=== PATIENT | male | born 1950 | race Caucasian/White ===

== ENCOUNTER 2018-10-29 06:42 | Inpatient (IN) | payer MEDICARE, OTHER, SELFPAY ==
[2018-10-15 11:00] VITALS: BP 118/69; PULSE 92; RESP 17; TEMP 37.3; O2SAT 97; BMI 28.4
[2018-10-15 12:23] LABS: Basophil# 0.04 X10^3/uL; Basophil% 0.6 % (0-1); Eosinophil# 0.16 X10^3/uL; Eosinophils% 2.5 % (0-5); Hematocrit 44.6 % (40-54); Hemoglobin 14.5 g/dl (13.0-16.5); Lymphocyte % 26.3 % (19-41); Mean Corp Hgb Conc 32.5 g/gl (32-36); Mean Corpuscular Hgb 28.5 pg (27.0-32.0); Mean Corpuscular Volume 87.8 fL (80-94); Mean Platelet Vol. 9.6 fl (6.2-12.0); Monocyte# 0.59 X10^3/uL; Monocyte% 9.1 % (0-10); Neutrophil # 3.96 X10^3/uL (2.7-7.7); Neutrophil % 61.3 % (47-70); Platelet Count 175 K/mm3 (150-450); RBC Distribution Width CV 14.3 % (11.6-14.6); RBC Distribution Width SD 45.9 fl (35.1-43.9); Red Blood Count 5.08 M/mm3 (4.6-6.2); White Blood Count 6.5 K/mm3 (4.4-11.0)
[2018-10-15 12:28] LABS: POSITIVE COUNT NO; POSITIVE DIFFERENTIAL NO; POSITIVE MORPHOLOGY NO
[2018-10-15 13:01] LABS: Anion Gap 7 (5-15); BUN 15 mg/dL (7-18); BUN/Creat Ratio 12.3 RATIO (10-20); Calcium,Total 8.4 mg/dL (8.5-10.1); Chloride 105 mmol/L (98-107); Creatinine, Serum 1.22 mg/dL (0.70-1.30); EST Glomerular Filtration Rate 62 mL/min (>60); Est Glom Filt Rate - Afr Amer 76 mL/min (>60); Estimated Creatinine Clearance 60.01 ml/min; Glucose 104 mg/dL (74-106); Potassium 3.5 mmol/L (3.5-5.1); Sodium Level 139 mmol/L (136-145)
--- NOTE | 2018-10-15 20:25 | PCM.HP.BLA ---
History and Physical DATE OF SURGERY: 10/29/2018 SCHEDULED PROCEDURE: left total hip arthroplasty HISTORY OF PRESENT ILLNESS: This is a 68-year-old male who has been having ongoing pain in his left hip for several years. Pain is progressively been getting worse. Patient states he has increased pain going up and down stairs and walking any amount of distance. Lying down is helpful. Patient does have start up pain. Pain is located in his left groin. Patient has difficult time with activities of daily living including bathing/showering, getting dressed, doing housework, and shopping. Patient feels unsafe walking on uneven ground due to the pain. Patient has tried conservative measures consisting of rest, ice, heat, elevation with minimal improvement. He has been through formal physical therapy with no relief. Patient has also tried oral medications consisting of ibuprofen without significant relief. Patient has required the use of a cane due to his pain. Patient currently denies any chest pain, shortness of breath, fevers chills, recent infections. She did undergo a recent heart valve replacement on July 21, 2018. Patient underwent mitral valve replacement. Patient has obtain surgical clearance from his labor relations consultant. Patient was instructed by the labor relations consultant to stop the aspirin 7 days prior to surgery. We are also obtaining surgical clearance or patient's primary care physician. Patient also has history of hypertension and previous atrial fibrillation. Patient also has a history of a previous benign cervical tumor that was removed many years ago. After failing conservative measures and discussing all treatment options by Dr. Josue Aquino, the patient does wish to proceed with a left total hip arthroplasty. REVIEW OF SYSTEMS: ROS: Const: Denies anorexia, change in appetite, fever, difficulty sleeping and weight change. CV: Reports heart murmur, but denies chest pain, irregular heartbeat and peripheral vascular disease. Resp: Denies asthma, cough, pneumonia, sleep apnea, shortness of breath, tuberculosis and wheezing. GI: Denies constipation, diarrhea, heartburn, nausea, rectal itching, bloody stools and vomiting. : Denies incontinence. Musculo: Reports pain, trouble walking and weakness, but denies leg swelling. Skin: Denies Raynaud's, history of shingles and tattoo. Neuro: Reports numbness/tingling but denies ambulatory dysfunction, dizziness and tremor. Psych: Denies anxiety, depression, insomnia, mental illness and stress. Jack/Lymph: Denies anemia, bleeding/bruising tendency and past transfusion. Reviewed and updated. PAST MEDICAL HISTORY: Advance Care Plan: Other Directive, POA Effective Date: 10/31/2017 Other Directive, LIVING WILL Effective Date: 10/31/2017 PMH: Medical Problems: Arthritis, Cancer Accidents: Sports Related Injury - KNEE INJURIES Surgical Hx: Tonsillectomy - [facility] Cyst Blanched, Cervial Tumor Removed Heart Valve Replacement - (07/2018) Anesthesia Complications: None Assistive Devices: Glasses, Cane Reviewed and updated. SOCIAL HISTORY: SH: Marital: Single.Occupation: [employer].Work Status: Currently Working.Hand Dominance: Left-handed. Personal Habits: Cigarette Use: Chewing Tobacco.Alcohol: Occasionally.Drug Use: Denies Use.Enjoy Exercising: Never Exercises. Reviewed and updated. VITALS: Ht: 71.5 Wt: 206lb Wt k.442 BMI: 28.3 BP: 123/86 Pulse: 103 Resp: 20 T: 97.5 T: 36.4C ALLERGIES: No Known Drug Allergy MEDICATIONS: Latanoprost 0.005 % 1 drop in each eye daily, Dorzolamide HCL 2 % one drop in each eye bid, Aspirin 325 mg 1 tab PO daily PRE-OP EXAM: General appearance:NORMAL Other: Eyes: Conjunctivae and lids: NORMAL Pupils: ERR Ears, Nose, Mouth, and Throat: NORMAL Other: Inspection of lips, teeth and gums: NORMAL Other: Neck: Examination of neck: no masses noted. Respiratory: Assessment of respiratory effort: NORMAL Other: Auscultation of lungs: clear to auscultation no wheezes, rhonchi or rales. Cardiovascular: Auscultation of heart: regular rate and rhythm, positive systolic murmur. Gastrointestinal: Exam of abdomen: soft, nontender, nondistended bowel sounds present. PHYSICAL EXAMINATION: Patient walks with an antalgic gait. Currently has left groin pain associated with range of motion and walking. Left hip range of motion: Flexion 90, internal rotation neutral, external rotation 10. Patient has 3 cm leg length discrepancy on the left. Sensation intact to light touch. Neurovascularly intact. IMAGING STUDIES: X-rays of the left hip reveal joint space narrowing with subchondral sclerosis and osteophyte formation consistent with severe osteoarthritis. There is evidence of subchondral collapse and femoral head flattening. Patient has appreciable leg length discrepancy. IMPRESSION: 1. Severe left hip osteoarthritis 2. Hypertension 3. History of mitral valve replacement: July 2018 4. History of atrial fibrillation PLAN: Dr. Josue Aquino did discuss and review with the patient all treatment options including surgical versus nonsurgical options. Patient does wish to proceed with the above-stated procedure. Potential risks, benefits, and complications of the procedure were discussed in detail including but not limited to , infection, nerve and blood vessel damage, persistent pain, numbness, tingling, paresthesias, blood clot, pulmonary embolism, and requirement for possible further surgery. The patient expressed full understanding and has no further questions for the doctor. Patient does agree to proceed with the above-stated procedure and has signed the surgery consent form. This dictation was created using voice recognition software. Phonetic and/or grammatical errors may exist.. ___ I have re-examined the patient. There are no clinical changes since date of exam. ___ See progress notes for changes. ___ Dictated on admission Date: Time: Signature:
[2018-10-29] VITALS (10 sets, daily range): BP systolic 101–140; BP diastolic 57–75; PULSE 82–91; RESP 14–18; TEMP 36.1–36.7; O2SAT 93–96; BMI 28.4
[2018-10-29] MEDS: oxyCODONE HCl Cr 10 MG Tablet PO (07:18)
[2018-10-29] MEDS: Acetaminophen 500 MG Tablet 1000 MG PO ×3 (07:18→21:21)
[2018-10-29] MEDS: Cefazolin 2 GM in 0.9% Normal Saline 100 ML IV (08:29)
--- NOTE | 2018-10-29 09:00 | RAD_ITS ---
STUDY: X-RAY - LEFT HIP REASON FOR EXAM: Male, 68 years old. Anterior hip replacement. TECHNIQUE: 2 views of the hip. COMPARISON: None. FINDINGS: The patient is status post total hip replacement. There is good alignment. RAD/Hip 1 view with Pelvis IMPRESSION: Status post left hip replacement. There is good alignment. Electronically Signed: Caleb Hickey, at 16:01 EDT , Service support ,
--- NOTE | 2018-10-29 09:00 | HIP_PTH ---
PATIENT: CLIVE FUENTES LOC: [facility] U#:[id number] AGE/SX: 68/M ROOM: WY320 RE10/29/[address]: Dr. Josue Aquino MD : [id number] BED: 1 DIS: 11/01/2018 SPEC #: [id number] RECD: 10/29/18 11:32 STATUS: SEVEN REQ #: [id number] KAVITHA: 10/29/18 09:[address]: Josue Aquino DEPT: SURGICAL PATHOLOGY RECD BY: Bryan Abraham ENTERED: 10/29/18 12:56 SP TYPE: TOTAL HIP OTHR DR: Dr. Rene Izaguirre MD Tissues: Hip, NOS Procedures: Decalcification bone/plaque Surgery Specimen Level IV HEADER OPERATION: Total hip anterior approach PRE-OP DIAGNOSIS: Left hip osteoarthritis TISSUE SUBMITTED: Femoral head MICROSCOPIC DIAGNOSIS Left femoral head, total hip replacement/resection: Femoral head with degenerative osteoarthritic changes. Fragments of dense fibroconnective tissue and synovial tissue. LETICIA:maria de jesus 11/03/18 MICROSCOPIC DESCRIPTION Slides are reviewed. GROSS DESCRIPTION Received is one container designated left femoral head. The specimen consists of a osborn femoral head with portion of femoral neck. The femoral head measures 6 x 6 x 6 cm and the portion of femoral neck measures up to 1.5 cm in greatest dimension. The articular surface displays prominent osteophyte formation, eburnation and bone erosion. Also present in the specimen container are multiple irregular fragments of bone reamings and pink-yellow soft tissue measuring in aggregate 6 x 5 x 3 cm. Speed Belt Sander sections are submitted in two cassettes as follows: 1 - soft tissue, 2 - bone after decalcification. / LETICIA:maria de jesus 10/29/18 TC:5 [facility]: [id number]
--- NOTE | 2018-10-29 10:06 | OP.PCM_ITS ---
Report of Operation Date of Procedure: 10/29/18 Pre-Operative Diagnosis: Left hip primary osteoarthritis Post-Operative Diagnosis: Left hip primary osteoarthritis Surgery/Procedure Performed:: Left direct anterior total hip replacement Description of Surgical Findings:: Stable hip equal leg lengths yarn rewinder: Denice Hill Type of Anesthesia:: Spinal Anesthesiologist: Tommie Rodriguez Special Medications: 2 g Ancef, 2 g TXA lavage and wound at completion of case, 10 mg Decadron, joint cocktail (5 mg Duramorph, 30 mL of 0.5% Ropivicaine, 1000 units of epinephrine, 30 mg of Toradol) Specimen's removed: Femoral head, bony cuts Estimated Blood Loss (mL): 200 Fluids Replaced: 1200 mL crystalloid Description of Procedure: Components used: 1. Accolade 2 [place] femoral stem size 8 127? 2. [place] trident 2 acetabular shell size 60 mm 3. [place] X3 polyethylene G 4. [place] Biolox delta 36mm, +2.5mm femoral head Brief history operative indications: 68 yo m who failed conservative measures for their hip osteoarthritis. X-rays were consistent with osteoarthritis including joint space narrowing, osteophyte formation and subchondral cysts. Total hip replacement was discussed with the patient with risks and benefits including but not limited to blood loss, DVTs, PEs, neurovascular damage, dislocation, general risks of anesthesia including loss of life. Patient demonstrated an understanding medical clearance is obtained the patient was consented for surgery. Procedure: On the date of procedure the patient's L hip was marked in the preoperative area. Patient was then taken back to the operating room where anesthesia as sumed control of the C-spine and airway and administered anesthetic. Patient was transferred to the operating table and placed in the supine position. The hips were placed at the break of the bed and a sacral bump was placed. The L lower extremity was then prepped out in a sterile fashion using chlorhexidine while the surgeon scrubbed. The PA was vital in the positioning of the patient. Upon reentering the room the L lower extremity was draped in the standard orthopedic fashion and the incision was marked. A timeout was called and everyone agreed upon the side, the site, the procedure be performed, antibody given, and patient's identity. At this time incision was made through skin, subcutaneous tissue, and fat down to fascia. The fascia was then incised and the TFL was retracted laterally. A retractor was placed on the lateral border of the femoral neck. Attention was directed to the inferior portion of the approach and all crossing vessels were identified and appropriately coagulated. A retractor was then placed on the medial portion of the femoral neck. The anterior capsule was then cleared of all soft tissue and then H shaped capsulotomy was made. The retractors were then placed inside the capsule. The femoral neck was identified and a cleanup cut was made. At this time a power corkscrew was used to remove the femoral head. Attention was then turned toward the acetabulum where the soft tissues were appropriately retracted and the acetabulum was sequentially reamed to 60 mm. A 60 mm cup was then selected and impacted into place. 2 screws were placed ort hogonally. Acetabular liner was impacted into place and locking mechanism was verified. The position of the acetabular cup was then verified under live fluoroscopy. Attention was then turned to the femur. Soft tissue releases on the medial and lateral femoral neck were appropriately done, the leg was externally rotated and lateralized. A Linder retractor was placed medially and proximally to the greater trochanter this allowed appropriate visualization and exposure of the femoral canal. Rongeour was then used to remove excess lateral bone. A canal finder and entry broach were used to open the proximal canal. Once we verified we were down the femoral canal we subsequently broached up to a size 8 femur. The appropriate neck was placed in the previously selected head was trialed with a +2.5 mm neck. Traction was pulled and the hip was reduced with internal rotation. Once it was appropriately reduced and stability was checked. There was minimal shuck, equal leg lengths and appropriate stability with hyperextension and external rotation as well as with 90? flexion and internal rotation. Fluoroscopy was then also used to verify the position of the components and leg lengths using the contralateral side for comparison. The trial components were then dislocated the proximal femur was again exposed and the components were removed from the wound. The final components were verified and opened. The wound was copiously irrigated out with normal saline. The acetabulum was checked for any residual debris. The final components were placed and impacted. Traction and internal rotation were again used to reduce the hip. After adequate reduction the hip remained stable with appropriate leg lengths. The final components were once again checked with live fluoroscopy and were found to be satisfactory. The wound was then copiously irrigated with normal saline once more, and hemostasis was obtained. Closure was then done using #1 Vicryl runner to close the fascia. A 2-0 vicryl interuppted sutures were used to close the subcutaneous skin. A 3-0 Monocryl and Steri-Strips were used for final skin closure. A Silverlon dressing was placed. Patient was awakened by anesthesia and transferred to the [facility]. Patient was then transferred to the PACU for recovery. Postoperative plan: Patient will get 24 hours postop antibiotics. Patient will get in-house physical therapy and will be weight-bear as tolerated. Patient will follow up in office in 2 weeks for a wound check and x-rays. - Complications No intraoperative complications - Admit VTE Documentation VTE Present on Admission: No VTE Mechan Device Prophylaxis: SCD's, Thigh High ETODORA Hose VTE Pharm Prophylaxis ordered?: Yes
--- NOTE | 2018-10-29 10:08 | RAD_ITS ---
STUDY: X-RAY - LEFT HIP REASON FOR EXAM: Male, 68 years old. Left hip replacement. TECHNIQUE: 2 views of the hip. COMPARISON: None. FINDINGS: The patient is status post left total hip replacement. There is good alignment. Postoperative soft tissue changes. Moderate degree of osteoarthritis of the right hip joint. RAD/Hip Min 2 Views (Portable) IMPRESSION: Status post left total hip replacement. There is good alignment. Electronically Signed: Caleb Hickey, at 16:01 EDT , Service support ,
[2018-10-29] MEDS: Lactated Ringers 1,000 ML 999 ML IV (10:42)
[2018-10-29] MEDS: Scopolamine 1mg/72hr Patch 1 PATCH TD (10:52)
[2018-10-29] MEDS: Lactated Ringers 1,000 ML 125 ML IV ×2 (12:12→21:20)
[2018-10-29] MEDS: Cefazolin 1 GM/50 ML BAG IV (16:50)
[2018-10-29] MEDS: Ensure Clear 120 ML Liquid PO (16:52)
--- NOTE | 2018-10-29 16:55 | NURSING ---
Pt assisted to side of bed, attempted to void, unable. Bladder scanned for 288cc. Pt denies feeling the urge to void. Will continue to monitor.
[2018-10-29] MEDS: Senna/Docusate Sodium 1 Tablet 2 TABLET PO (21:20)
[2018-10-29] MEDS: Aspirin 81 MG TAB.CHEW PO (21:20)
[2018-10-29] MEDS: Meloxicam 7.5 MG Tablet PO (21:21)
[2018-10-29] MEDS: Latanoprost 0.005% 1 Bottle 1 DRP EACH EYE (21:24)
[2018-10-29] MEDS: Dorzolamide HCL/Timolol 10 ml Bottle 1 DRP EACH EYE (21:25)
[2018-10-30] MEDS: Cefazolin 1 GM/50 ML BAG IV (00:09)
[2018-10-30 03:16] VITALS: BP 127/70; PULSE 95; RESP 16; TEMP 37.1; O2SAT 96
--- NOTE | 2018-10-30 03:54 | NURSING ---
Bladder scanned pt for >581. Pt went to BR and was able to expel >200 w/o difficulty. Will encourage bathroom time.
[2018-10-30] MEDS: Acetaminophen 500 MG Tablet 1000 MG PO ×3 (06:02→22:51)
[2018-10-30 06:50] LABS: Hematocrit 31.3 % (40-54); Hemoglobin 10.2 g/dl (13.0-16.5); Mean Corp Hgb Conc 32.6 g/gl (32-36); Mean Corpuscular Hgb 28.8 pg (27.0-32.0); Mean Corpuscular Volume 88.4 fL (80-94); Mean Platelet Vol. 9.8 fl (6.2-12.0); Platelet Count 210 K/mm3 (150-450); RBC Distribution Width CV 13.6 % (11.6-14.6); RBC Distribution Width SD 42.2 fl (35.1-43.9); Red Blood Count 3.54 M/mm3 (4.6-6.2); White Blood Count 10.2 K/mm3 (4.4-11.0)
[2018-10-30 06:56] LABS: Scan Indicated on CBC? Y/N NO
[2018-10-30 07:02] LABS: Anion Gap 6 (5-15); BUN 13 mg/dL (7-18); BUN/Creat Ratio 12.4 RATIO (10-20); Calcium,Total 8.1 mg/dL (8.5-10.1); Chloride 105 mmol/L (98-107); Creatinine, Serum 1.05 mg/dL (0.70-1.30); EST Glomerular Filtration Rate 74 mL/min (>60); Est Glom Filt Rate - Afr Amer 90 mL/min (>60); Estimated Creatinine Clearance 69.72 ml/min; Glucose 124 mg/dL (74-106); Potassium 3.9 mmol/L (3.5-5.1); Sodium Level 140 mmol/L (136-145)
[2018-10-30 08:38] VITALS: BP 101/59; PULSE 100; RESP 14; TEMP 36.6; O2SAT 96
[2018-10-30] MEDS: Dorzolamide HCL/Timolol 10 ml Bottle 1 DRP EACH EYE ×2 (08:48→22:50)
[2018-10-30] MEDS: Aspirin 81 MG TAB.CHEW PO ×2 (08:48→16:53)
[2018-10-30] MEDS: Meloxicam 7.5 MG Tablet PO ×2 (08:48→22:51)
[2018-10-30] MEDS: Famotidine 20 MG Tablet PO (08:49)
[2018-10-30] MEDS: Senna/Docusate Sodium 1 Tablet 2 TABLET PO ×2 (08:56→23:06)
--- NOTE | 2018-10-30 09:51 | PN.ORTHO_ITS ---
Subjective: The patient was sitting in bed upon examination. Patient denies any chest pain, shortness of breath, lightheadedness, nausea or vomiting, or calf pain. Patient does complain of occasional dizziness. Pain is controlled on medications. No adverse overnight events. Patient's plan is to go to [facility] upon discharge. Patient will require 3 night stay. Objective: Vital signs stable and afebrile. Patient is able to plantarflex and dorsiflex actively. Sensation is intact to light touch to saphenous, sural, superficial and deep peroneal, and tibial distribution. Dressing is clean dry and intact. Negative Homans bilaterally, negative signs and symptoms of DVT. - Physical Exam General: Alert, Oriented x3, Cooperative, No apparent distress Vital Signs Temp Pulse Resp BP Pulse Ox 97.8 F 100 14 101/59 L 96 10/30/18 08:38 10/30/18 08:38 10/30/18 08:38 10/30/18 08:38 10/30/18 08:38 Oxygen Delivery Method Room Air Weight: 93.8 kg Body Mass Index (BMI) 28.4 Intake and Output for Last 24 Hours 10/28/18 10/29/18 10/30/18 23:59 23:59 23:59 Intake Total 1820 / 1820 2150 / 2150 Output Total 200 / 200 Balance 1820 / 1820 1950 / 1950 Laboratory Tests Past 24 Hrs 10/30/18 10/30/18 06:10 06:10 WBC 10.2 RBC 3.54 L Hgb 10.2 L Hct 31.3 L MCV 88.4 MCH 28.8 MCHC 32.6 RDW 13.6 RDW Differential 42.2 Plt Count 210 MPV 9.8 Sodium 140 Potassium 3.9 Chloride 105 Carbon Dioxide 29.0 Anion Gap 6 BUN 13 Creatinine 1.05 Estim Creat Clear Calc 69.72 Est GFR (MDRD) Af Amer 90 Est GFR (MDRD) Non-Af 74 BUN/Creatinine Ratio 12.4 Glucose 124 H Calcium 8.1 L Medical Necessity - Tobacco Use Smoking Status: Former smoker Tobacco Use: Chew Assessment/Plan 1. S/P left direct anterior total hip arthroplasty POD #1 2. Continue Pain Medications: Tylenol and OxyIR 3. DVT Prophylaxis: Aspirin 81 mg twice daily with food for 4 weeks postoperatively 4. PT/OT: Weightbearing as tolerated 5. H & H: 10.2/31.3, asymptomatic 6. Encouraged Incentive Spirometry 7. Disposition: Plan will be for discharge to senior living facility at [facility]. Patient requires a 3 night stay.
--- NOTE | 2018-10-30 11:20 | CASEMGMT ---
RN KANE Face to Face with patient for initial transition planning/care coordination assessment. RN KANE introduced self and role at [facility]. Patient lying in bed, alert and oriented. Patient willing to participate in assessment and is able to answer all questions appropriately. Care providers, pharmacy, and demographics verified. Patient wishes to discharge to [facility]. Patient states he has no further needs or concerns at this time. KANG Sarah updated regarding request for SNF PCP: Rene Izaguirre Specialists: Faviola rug inspector; Zuleima Boothe Preferred Pharmacy: [facility] Insurance: [facility] Prescription Benefit: Yes Living Will/HPOA: Yes sister Lissy Stephens LNOK: Sister Living Arrangements: Patient lives alone in 1 story home with 3 steps and railing to enter the home. Patient states he is independent at home. Transportation: Self DME/HHC: Patient states that he has a walker, cane, hip kit, and raised toilet seat. Disposition Plan: Patient to [facility] pending acceptance and qualifying stay. Bhavana WESTN, RN, CM
--- NOTE | 2018-10-30 12:54 | PCA ---
pt in therapy
[2018-10-30 13:34] VITALS: BP 110/65; PULSE 94; RESP 14; TEMP 37.2; O2SAT 95
--- NOTE | 2018-10-30 14:38 | CASEMGMT ---
Social Work Note RN CM. Minh Key updated this worker that pt is agreeable to [facility] at discharge. SW faxed referral to [facility]. KANG received call from Rhea at [facility] stating he has able to accept pt Saturday. Plan: [facility] Saturday Bhavana Sarah RN HOME HEALTH, ASSISTED SALES REPRESENTATIVE
[2018-10-30 19:52] VITALS: BP 124/54; PULSE 98; RESP 14; TEMP 36.9; O2SAT 94
[2018-10-30] MEDS: Latanoprost 0.005% 1 Bottle 1 DRP EACH EYE (22:50)
[2018-10-31 03:06] VITALS: BP 128/59; PULSE 86; RESP 14; TEMP 36.3; O2SAT 94
[2018-10-31] MEDS: Acetaminophen 500 MG Tablet 1000 MG PO ×3 (05:06→21:59)
--- NOTE | 2018-10-31 05:11 | NURSING ---
This nurse was informed by METAL BALER that pt was up taking a shower. Went in to speak with pt and reinforce the necessity to use call light and not get out of bed. Pt laughed and joked while nurse was speaking and continued to say 'if I fall it will be on me. You told me, you've done your job'. BE mode placed on. Last comment made by pt was that 'no one would come even if he set the alarm off'.
[2018-10-31 06:26] LABS: Hematocrit 28.5 % (40-54); Hemoglobin 9.1 g/dl (13.0-16.5); Mean Corp Hgb Conc 31.9 g/gl (32-36); Mean Corpuscular Hgb 28.7 pg (27.0-32.0); Mean Corpuscular Volume 89.9 fL (80-94); Mean Platelet Vol. 9.9 fl (6.2-12.0); Platelet Count 164 K/mm3 (150-450); RBC Distribution Width CV 13.8 % (11.6-14.6); RBC Distribution Width SD 43.6 fl (35.1-43.9); Red Blood Count 3.17 M/mm3 (4.6-6.2); White Blood Count 6.7 K/mm3 (4.4-11.0)
[2018-10-31 06:27] LABS: Scan Indicated on CBC? Y/N NO
--- NOTE | 2018-10-31 07:10 | PCM.PN.ORT ---
Subjective: The patient was sitting in bed upon examination. Patient denies any chest pain, shortness of breath, lightheadedness, nausea or vomiting, or calf pain. Pain is controlled on medications. No adverse overnight events. Plan is for patient to go to [facility] on Saturday discharge. Objective: Vital signs stable and afebrile. Patient is able to plantarflex and dorsiflex actively. Sensation is intact to light touch to saphenous, sural, superficial and deep peroneal, and tibial distribution. Dressing is clean dry and intact. Negative Homans bilaterally, negative signs and symptoms of DVT. - Physical Exam General: Alert, Oriented x3, Cooperative, No apparent distress Vital Signs Temp Pulse Resp BP Pulse Ox 97.4 F L 86 14 128/59 H 94 10/31/18 03:06 10/31/18 03:06 10/31/18 03:06 10/31/18 03:06 10/31/18 03:06 Oxygen Delivery Method Room Air Weight: 93.8 kg Body Mass Index (BMI) 28.4 Intake and Output for Last 24 Hours 10/29/18 10/30/18 10/31/18 23:59 23:59 23:59 Intake Total 1820 / 1820 3250 / 3250 1100 / 1100 Output Total 1300 / 1300 Balance 1820 / 1820 1950 / 1950 1100 / 1100 Laboratory Tests Past 24 Hrs 10/31/18 05:54 WBC 6.7 RBC 3.17 L Hgb 9.1 L Hct 28.5 L MCV 89.9 MCH 28.7 MCHC 31.9 L RDW 13.8 RDW Differential 43.6 Plt Count 164 MPV 9.9 Medical Necessity - Tobacco Use Smoking Status: Former smoker Tobacco Use: Chew Assessment/Plan 1. S/P left direct anterior total hip arthroplasty POD #2 2. Continue Pain Medications: Tylenol and OxyIR 3. DVT Prophylaxis: Aspirin 81 mg twice daily with food for 4 weeks postoperatively 4. PT/OT: Weightbearing as tolerated 5. H & H: 9.1/28.5, asymptomatic 6. Encouraged Incentive Spirometry 7. Disposition: Plan will be for discharge to [facility]. Patient requires a 3 night stay. Overall patient is doing well. Continue with physical therapy while in the hospital.
--- NOTE | 2018-10-31 07:15 | PCM.DC.THR ---
Discharge Diet: No Restrictions Discharge Activity: May Not Drive - while taking narcotic pain medications. May shower in (days): 1 - Okay to shower if dressing is intact his skin, no submerging underwater for 4 weeks postoperatively Ice area for (Minutes): 20 - Every 1-2 hours while awake Weight Bearing Status: Weight bearing as tolerated Elevate: Operative Extremity Additional Activity Instructions:: Wear elastic stockings for 2 weeks. DO NOT use alcohol with narcotic pain medication. DO NOT make important decisions while taking narcotic medication. If you have problems with taking your medication (rash, itching, nausea, etc.) call the office at once. Call your doctor if your incision/area has: Increased Pain/ Swelling, Increased Redness, Foul Smelling Discharge Call your doctor if you observe: Fever of 101 or Higher Remove Dressing in (days):: 2 - Okay to remove dressing on November 03, 2018 Additional Instructions: Follow [facility] postop instructions Allergies/Adverse Reactions: Allergies No Known Allergies Allergy (Verified 10/15/18 10:54) Medications to take at Discharge Dorzolamide HCl/Timolol Maleat [Cosopt Eye Drops] 1 drop OP BID 10/15/18 Latanoprost/Pf [Latanoprost 0.005% Eye Drop] 1 drop OP DAILY 10/15/18 Acetaminophen [Tylenol] 1,000 mg PO Q8 14 Days tablet 10/31/18 Aspirin [Aspirin, Baby] 81 mg PO BIDCM 28 Days tab.chew 10/31/18 Famotidine [Pepcid] 20 mg PO DAILY 28 Days tablet 10/31/18 Meloxicam [Mobic] 7.5 mg PO BID 28 Days tablet 10/31/18 Oxycodone [Oxyir] 5 - 10 mg PO Q4H PRN PRN 5 Days #60 tab 10/31/18 Senna/Docusate Sodium [Senokot-S] 2 tablet PO BID tablet 10/31/18 The following prescriptions were given: Oxycodone [Oxyir] 5 - 10 mg PO Q4H PRN PRN 5 Days #60 tab PRN Reason: Mod-Severe Pain (4-10/10) Aspirin [Aspirin, Baby] 81 mg PO BIDCM 28 Days tab.chew Primary Care Physician: Rene Izaguirre [Primary Care Provider] - Test Results: Test results from this visit will be discussed in further detail at your follow-up appointment, if applicable. Please Follow Up With: Cyril Smith PA-C When: 11/12/18 @ 9:15 am
[2018-10-31 08:10] VITALS: PULSE 84
[2018-10-31] MEDS: Aspirin 81 MG TAB.CHEW PO ×2 (08:10→18:21)
[2018-10-31 08:11] VITALS: BP 110/53; PULSE 94; RESP 18; TEMP 36.8; O2SAT 93
--- NOTE | 2018-10-31 09:27 | CASEMGMT ---
Addendum entered by Bhavana Sarah 10/31/18 14:13: SW updated pt on acceptance to [facility] tomorrow. Pt states that he will have a friend to transport him tomorrow. Original Note: Addendum entered by Bhavana Sarah 10/31/18 11:17: SW placed a call to Rhea in admissions and [facility]. KANG confirmed with Rhea that pt is being discharged tomorrow and provided Rhea with [facility] Main number. Original Note: Social Work Note Pt is to discharge to [facility] Saturday. KANG completed convalescent 7000 in [facility]. Original in pt's chart. Green sheet and transportation form on pt's chart. Plan: [facility] Saturday Bhavana Sarah SECONDARY SPECIAL EDUCATION TEACHER, CLOTH CALENDER
[2018-10-31] MEDS: Dorzolamide HCL/Timolol 10 ml Bottle 1 DRP EACH EYE ×2 (10:17→22:01)
[2018-10-31] MEDS: Senna/Docusate Sodium 1 Tablet 2 TABLET PO (10:17)
[2018-10-31] MEDS: Famotidine 20 MG Tablet PO (10:18)
[2018-10-31] MEDS: Meloxicam 7.5 MG Tablet PO ×2 (10:18→21:59)
[2018-10-31 13:55] VITALS: BP 107/59; PULSE 89; RESP 18; TEMP 37; O2SAT 93
[2018-10-31 21:46] VITALS: BP 117/56; PULSE 86; RESP 16; TEMP 36.9; O2SAT 94
[2018-10-31] MEDS: Latanoprost 0.005% 1 Bottle 1 DRP EACH EYE (22:01)
[2018-11-01 04:13] VITALS: BP 119/64; PULSE 79; RESP 16; TEMP 36.4; O2SAT 95
[2018-11-01] MEDS: Acetaminophen 500 MG Tablet 1000 MG PO (06:16)
[2018-11-01 08:10] LABS: Hematocrit 30.8 % (40-54); Hemoglobin 9.8 g/dl (13.0-16.5); Mean Corp Hgb Conc 31.8 g/gl (32-36); Mean Corpuscular Hgb 28.2 pg (27.0-32.0); Mean Corpuscular Volume 88.5 fL (80-94); Mean Platelet Vol. 9.4 fl (6.2-12.0); Platelet Count 193 K/mm3 (150-450); RBC Distribution Width CV 14.4 % (11.6-14.6); RBC Distribution Width SD 46.5 fl (35.1-43.9); Red Blood Count 3.48 M/mm3 (4.6-6.2); White Blood Count 8.2 K/mm3 (4.4-11.0)
[2018-11-01 08:12] LABS: Scan Indicated on CBC? Y/N NO
[2018-11-01] MEDS: Dorzolamide HCL/Timolol 10 ml Bottle 1 DRP EACH EYE (08:38)
[2018-11-01] MEDS: Aspirin 81 MG TAB.CHEW PO (08:38)
[2018-11-01] MEDS: Meloxicam 7.5 MG Tablet PO (08:39)
[2018-11-01] MEDS: Famotidine 20 MG Tablet PO (08:39)
--- NOTE | 2018-11-01 09:11 | PCM.PN.ORT ---
Subjective: Patient doing well. Pain control. Doing well with physical therapy. Awaiting discharge to senior care facility today. Does not have good support at home. Lives alone. No chest pain or shortness of breath. No calf pain. Objective: Postop x-rays reviewed showing well placed left total hip replacement. - Physical Exam General: Alert, Oriented x3, Cooperative Extremities: - - Left lower extremity: Dressing is clean dry and intact Sensations intact to light touch saphenous, sural, superficial peroneal, deep peroneal, and tibial distributions Motors intact EHL, DF, PF calves are soft and supple Vital Signs Temp Pulse Resp BP Pulse Ox 97.5 F L 79 16 119/64 95 11/01/18 04:13 11/01/18 04:13 11/01/18 04:13 11/01/18 04:13 11/01/18 04:13 Oxygen Delivery Method Room Air Weight: 206 lb 12.697 oz Body Mass Index (BMI) 28.4 Intake and Output for Last 24 Hours 10/30/18 10/31/18 11/01/18 23:59 23:59 23:59 Intake Total 3250 / 3250 1100 / 1100 220 / 220 Output Total 1300 / 1300 Balance 1950 / 1950 1100 / 1100 220 / 220 Laboratory Tests Past 24 Hrs 11/01/18 07:10 WBC 8.2 RBC 3.48 L Hgb 9.8 L Hct 30.8 L MCV 88.5 MCH 28.2 MCHC 31.8 L RDW 14.4 RDW Differential 46.5 H Plt Count 193 MPV 9.4 Medical Necessity - Tobacco Use Smoking Status: Former smoker Tobacco Use: Chew Assessment/Plan 1. S/P left direct anterior total hip arthroplasty POD #3 2. Continue Pain Medications: Tylenol and OxyIR 3. DVT Prophylaxis: Aspirin 81 mg twice daily with food for 4 weeks postoperatively 4. PT/OT: Weightbearing as tolerated 5. Encouraged Incentive Spirometry 6. Disposition: Discharge to senior care facility today overall patient is doing well. [facility] Office:
[2018-11-01 10:15] VITALS: BP 118/57; PULSE 86; RESP 18; TEMP 36.6; O2SAT 94
--- NOTE | 2018-11-03 08:09 | PCM.DC.SUM ---
Discharge Date and Diagnosis Date of Admission: 10/29/18 Date of Discharge: 11/01/18 Hospital Course and Treatment Summary of Care Provided: Patient is a 68-year-old male who has been having left hip pain for several years. After failing conservative measures, the patient opted to proceed with a left direct anterior total hip arthroplasty. The patient underwent the above-stated procedure on October 29, 2018. Patient did receive perioperative antibiotics. Intraoperatively was uneventful. For details please see dictated operative note. The patient was placed in thigh-high teds, bilateral SCDs, remained stable in recovery. Patient was admitted to the 3rd floor at [facility]. The patient's pain was managed with the use of IV and p.o. pain medications. Patient participated in physical therapy. Patient was discharged on postoperative day #3 [facility]. Patient required a 3 night secondary to insurance. Patient was medically doing very well in the hospital. Patient was given medications stated below. Patient will follow up with [facility] per postop instructions for reassessment. - Physical Exam Vital Signs Temp Pulse Resp BP Pulse Ox 97.9 F 86 18 118/57 L 94 11/01/18 10:15 11/01/18 10:15 11/01/18 10:15 11/01/18 10:15 11/01/18 10:15 Oxygen Delivery Method Room Air Weight: 93.8 kg Body Mass Index (BMI) 28.4 Intake and Output for Last 24 Hours 11/01/18 11/02/18 11/03/18 23:59 23:59 23:59 Intake Total 220 / 220 Balance 220 / 220 Discharge Diet: No Restrictions Discharge Activity: May Not Drive - while taking narcotic pain medications. May shower in (days): 1 - Okay to shower if dressing is intact his skin, no submerging underwater for 4 weeks postoperatively Ice area for (Minutes): 20 - Every 1-2 hours while awake Weight Bearing Status: Weight bearing as tolerated Keep extremity elevated above heart level: Operative Extremity Additional Activity Instructions:: Wear elastic stockings for 2 weeks. DO NOT use alcohol with narcotic pain medication. DO NOT make important decisions while taking narcotic medication. If you have problems with taking your medication (rash, itching, nausea, etc.) call the office at once. Call your doctor if your incision/area has: Increased Pain/ Swelling, Increased Redness, Foul Smelling Discharge Call your doctor if you observe: Fever of 101 or Higher Remove Dressing in (days):: 2 - Okay to remove dressing on November 03, 2018 Home Medications: Medications to take at Discharge Dorzolamide HCl/Timolol Maleat [Cosopt Eye Drops] 1 drop OP BID 10/15/18 Latanoprost/Pf [Latanoprost 0.005% Eye Drop] 1 drop OP DAILY 10/15/18 Acetaminophen [Tylenol] 1,000 mg PO Q8 14 Days tablet 10/31/18 Aspirin [Aspirin, Baby] 81 mg PO BIDCM 28 Days tab.chew 10/31/18 Famotidine [Pepcid] 20 mg PO DAILY 28 Days tablet 10/31/18 Meloxicam [Mobic] 7.5 mg PO BID 28 Days tablet 10/31/18 Oxycodone [Oxyir] 5 - 10 mg PO Q4H PRN PRN 5 Days #60 tab 10/31/18 Senna/Docusate Sodium [Senokot-S] 2 tablet PO BID tablet 10/31/18 Following Prescrptions Were Given to Patient: Oxycodone [Oxyir] 5 - 10 mg PO Q4H PRN PRN 5 Days #60 tab PRN Reason: Mod-Severe Pain (4-10/10) Aspirin [Aspirin, Baby] 81 mg PO BIDCM 28 Days tab.chew Primary Care Physician: Rene Izaguirre [Primary Care Provider] - Please Follow Up With: Cyril Smith PA-C When: 11/12/18 @ 9:15 am Additional Instructions: Follow [facility] postop instructions Medical Necessity - Tobacco Use Smoking Status: Former smoker Tobacco Use: Chew Meaningful Use Info Meaningful Use Diagnoses (Choose all that apply): None applicable
--- NOTE | 2018-11-03 08:13 | DS.PCM_ITS ---
Discharge Date and Diagnosis Date of Admission: 10/29/18 Date of Discharge: 11/01/18 Hospital Course and Treatment Summary of Care Provided: Patient is a 68-year-old male who has been having left hip pain for several years. After failing conservative measures, the patient opted to proceed with a left direct anterior total hip arthroplasty. The patient underwent the above- stated procedure on October 29, 2018. Patient did receive perioperative antibiotics. Intraoperatively was uneventful. For details please see dictated operative note. The patient was placed in thigh-high teds, bilateral SCDs, remained stable in recovery. Patient was admitted to the 3rd floor at [facility]. The patient's pain was managed with the use of IV and p.o. pain medications. Patient participated in physical therapy. Patient was discharged on postoperative day #3 [facility] nursing [facility]. Patient required a 3 night secondary to insurance. Patient was medically doing very well in the hospital. Patient was given medications stated below. Patient will follow up with [facility] per postop instructions for reassessment. - Physical Exam Vital Signs Temp Pulse Resp BP Pulse Ox 97.9 F 86 18 118/57 L 94 11/01/18 10:15 11/01/18 10:15 11/01/18 10:15 11/01/18 10:15 11/01/18 10:15 Oxygen Delivery Method Room Air Weight: 93.8 kg Body Mass Index (BMI) 28.4 Intake and Output for Last 24 Hours 11/01/18 11/02/18 11/03/18 23:59 23:59 23:59 Intake Total 220 / 220 Balance 220 / 220 Discharge Diet: No Restrictions Discharge Activity: May Not Drive - while taking narcotic pain medications. May shower in (days): 1 - Okay to shower if dressing is intact his skin, no submerging underwater for 4 weeks postoperatively Ice area for (Minutes): 20 - Every 1-2 hours while awake Weight Bearing Status: Weight bearing as tolerated Keep extremity elevated above heart level: Operative Extremity Additional Activity Instructions:: Wear elastic stockings for 2 weeks. DO NOT use alcohol with narcotic pain medication. DO NOT make important decisions while taking narcotic medication. If you have problems with taking your medication (rash, itching, nausea, etc.) call the office at once. Call your doctor if your incision/area has: Increased Pain/ Swelling, Increased Redness, Foul Smelling Discharge Call your doctor if you observe: Fever of 101 or Higher Remove Dressing in (days):: 2 - Okay to remove dressing on November 03, 2018 Home Medications: Medications to take at Discharge Dorzolamide HCl/Timolol Maleat [Cosopt Eye Drops] 1 drop OP BID 10/15/18 Latanoprost/Pf [Latanoprost 0.005% Eye Drop] 1 drop OP DAILY 10/15/18 Acetaminophen [Tylenol] 1,000 mg PO Q8 14 Days tablet 10/31/18 Aspirin [Aspirin, Baby] 81 mg PO BIDCM 28 Days tab.chew 10/31/18 Famotidine [Pepcid] 20 mg PO DAILY 28 Days tablet 10/31/18 Meloxicam [Mobic] 7.5 mg PO BID 28 Days tablet 10/31/18 Oxycodone [Oxyir] 5 - 10 mg PO Q4H PRN PRN 5 Days #60 tab 10/31/18 Senna/Docusate Sodium [Senokot-S] 2 tablet PO BID tablet 10/31/18 Following Prescrptions Were Given to Patient: Oxycodone [Oxyir] 5 - 10 mg PO Q4H PRN PRN 5 Days #60 tab PRN Reason: Mod-Severe Pain (4-10/10) Aspirin [Aspirin, Baby] 81 mg PO BIDCM 28 Days tab.chew Primary Care Physician: Rene Izaguirre [Primary Care Provider] - Please Follow Up With: Cyril Smith PA-C When: 11/12/18 @ 9:15 am Additional Instructions: Follow [facility] postop instructions Medical Necessity - Tobacco Use Smoking Status: Former smoker Tobacco Use: Chew Meaningful Use Info Meaningful Use Diagnoses (Choose all that apply): None applicable
== END 2018-11-01 11:12 | disposition skilled nursing facility (03) | DRG 470 ==
LOC: ACINP 06:42 → MS3 07:44
PROVIDERS: Admitting Provider Specialist; Family Provider Family Medicine; PCP Family Medicine; Referring Provider Specialist; Visit Provider Specialist
PROC: 0SRB04A Replacement of Left Hip Joint with Ceramic on Polyethylene Synthetic Substitute, Uncemented, Open Approach (ICD-10-PCS; CPT 27284; principal; 2018-10-29 08:35)
DX: M16.12 Unilateral primary osteoarthritis, left hip (principal); Z95.2 Presence of prosthetic heart valve; I10 Essential (primary) hypertension; Z72.0 Tobacco use
CPT/HCPCS: 36415; 73501; 73502; 76000; 80048; 85025; 85027; 87081; 88305; 88311; 97110; 97162; 97166; 97530; 99251; 99406; C1713; C1776; J7120; G0463

== ENCOUNTER → 2022-04-26 | Outpatient (CLI) | payer MEDICARE, OTHER, SELFPAY ==
--- NOTE | 2022-04-26 12:35 | MRI_ITS ---
STUDY: MRI BRAIN WITH AND WITHOUT CONTRAST REASON FOR EXAM: Male, 71 years old patient with nystagmus. Rule-out brainstem and cerebellar lesion. TECHNIQUE: Standardized multiplanar fat and water weighted pulse sequences were obtained. 20 ml of IV Clariscan was administered for the contrast portion of the examination. COMPARISON: Prior comparison studies are not available for review at this time. FINDINGS: There is mild cerebral atrophy with widening of the extra-axial spaces and moderate ventricular dilatation. There are a limited number of small white matter hyperintensities, distributed throughout the deep white matter tracts of the cerebral hemispheres, consistent with mild chronic white matter ischemic changes. There is a small area of encephalomalacia involving the posterior medial right occipital lobe that may be the result of old infarct. There is no evidence for recent intracranial ischemia or other cause of cytotoxic edema on diffusion weighted imaging (DWI). Normal T2* images of the brain without demonstrated susceptibility artifact. There is no demonstrated hemosiderin stain. There are prominent perivascular spaces (PVS) involving the basal ganglia. Normal thalami. There is no extra-axial fluid accumulation. Normal flow voids within the major intracranial circulation suggesting patency by spin echo criteria. Normal venous enhancement. There is no enhancing intra-axial or extra-axial abnormality. Normal sella turcica, pituitary gland, infundibular stalk, optic chiasm and hypothalamus. Normal tectal plate and pineal gland. Normal midbrain, paras and medulla. There is a small focus of abnormal signal left cerebellum may represent sequela of tiny infarct measuring only a few millimeters in size. Cerebellum otherwise is within normal limits in appearance. There are large basal cisterns. Normal bilateral temporal bones. Normal bilateral internal auditory canals. 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 A right globe has a normal appearance though may have a lenticular implant. There is opacification of a posterior left-sided ethmoid sinus. Normal calvarium and skull base. Normal visualized soft tissue structures. Normal visualized upper cervical spine. MRI/Brain W/WO Contrast IMPRESSION: 1. Involutional changes of the brain, as described above. 2. No MR evidence for acute infarct or mass. 3. 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 Electronically Signed: Bela Boothe MD at 4:22 EDT ,
[2022-04-27 07:37] LABS: CREATININE FINGERSTICK 0.92 mg/dL (0.70-1.30); EGFR FINGERSTICK > 60 mL/min (>60)
== END | disposition home or self-care (01) ==
LOC: MRI 12:17
PROVIDERS: PCP Family Medicine
DX: H55.00 Unspecified nystagmus (principal)
CPT/HCPCS: 70553; A9575